=== PATIENT | female | born 1955 | race Caucasian/White ===

== ENCOUNTER 2023-05-03 06:02 | Emergency (ER) | payer MEDICARE, SELFPAY ==
[2023-05-03 06:02] VITALS: BP 135/73; PULSE 100; RESP 18; TEMP 36.6; O2SAT 96; BMI 30.9
--- NOTE | 2023-05-03 06:02 | PC.NURSE ---
in room talking with patient at this time.
--- NOTE | 2023-05-03 06:05 | HMH.EDGENADL ---
Discharge Plan Disposition Patient Disposition: Home, Self-Care Chief Complaint: PAIN Referrals Follow up/Referrals: Provider,Referral, [Primary Care Provider] - See instructions Clinical Impressions Clinical Impression: Chronic pain Qualifiers: Chronic pain type: chronic pain syndrome Qualified Code(s): G89.4 - Chronic pain syndrome Instructions Patient Instructions: DI for Chronic Pain -- Adult Discharge ED Provider: Bethany Hughes Adult HPI General Chief complaint: PAIN Stated complaint: pain Time Seen by Provider: 05/03/23 06:04 Mode of Arrival: EMS Source of Information: Patient History of Present Illness HPI narrative: The patient presents to the emergency department complaining of lower extremity pain. She states that this is chronic pain. She has multiple sclerosis and diabetes. States that usually the pain is not as severe as this time. She takes no pain medications. She is not allergic to any pain medications. She denies any other symptoms. Related Data Allergies Allergy/AdvReac Type Severity Reaction Status Date / Time No Known Allergies Allergy Verified 05/03/23 06:03 [facility] Disclaimer: The information contained in this section may have been updated after the patient was seen, as this information can be updated by other users. Social History Smoking Status: Current every day smoker ROS Obtained: Yes All systems reviewed & no additional complaints except as documented Physical Exam General General appearance: alert Head Head exam: atraumatic Eye Eye exam: Present normal appearance and PERRL ENT ENT exam: Present normal exam and normal oropharynx Neck Neck exam: Present normal inspection and full ROM; Absent tenderness or meningismus Chest Chest inspection: Present normal inspection and symmetric chest wall rise; Absent tenderness Respiratory Respiratory exam: Present normal lung sounds bilaterally; Absent respiratory distress or accessory muscle use Cardiovascular Cardiovascular exam: Present regular rate, normal rhythm and normal heart sounds Abdominal Exam Abdominal exam: Present soft and normal bowel sounds; Absent distention, tenderness, heel tap sign, Latham's sign, Rovsing's sign, tenderness at McBurney's Point or mass Extremities Exam Extremities exam: Present normal inspection, full ROM and other (All 4 extremities are neurovascularly intact.); Absent edema or calf tenderness Back Exam Back exam: Present normal inspection; Absent CVA tenderness (R) or CVA tenderness (L) Neurological Exam Neurological exam: Present alert and oriented X3 Psychiatric Psychiatric exam: Present normal affect and normal mood Skin Skin exam: Present warm, dry, intact and normal color Medical Decision Making Boyd Inquiry Pt receiving controlled substance: No Vital Signs: 05/03/23 06:02 Temperature 97.8 F Temperature Source Oral Pulse Rate [Right Radial] 100 H Respiratory Rate 18 Blood Pressure [Right Arm] 135/73 Blood Pressure Mean [Right Arm] 93 Blood Pressure Source [Right Arm] Automatic Cuff 02 Sat by Pulse Oximetry 96 Oxygen Delivery Method Room Air Orders (Tests/Meds): ED MEDICATIONS Generic Name Dose Route Start Last Admin Trade Name Freq PRN Reason Stop Dose Admin Ondansetron HCl 4 mg 05/03/23 06:42 05/03/23 06:48 Ondansetron 4mg/2ml Vial IV 05/03/23 06:43 4 mg ONCE ONE Administration Discontinued Medications Generic Name Dose Route Start Last Admin Trade Name Freq PRN Reason Stop Dose Admin Acetaminophen 1,000 mg 05/03/23 06:04 05/03/23 06:15 Acetaminophen 1,000mg/100ml Vial IV 05/03/23 06:05 1,000 mg ONCE ONE Administration Ketorolac Tromethamine 30 mg 05/03/23 06:04 05/03/23 06:16 Ketorolac 30mg/Ml Vial IV 05/03/23 06:05 30 mg ONCE ONE Administration Reevaluation(s) Time: 06:54 Reevaluation #1: The patient continues to be in pain after acetaminophen and Toradol. Medical Decision Narrat
[2023-05-03 06:06] VITALS: BMI 30.9
[2023-05-03 07:05] VITALS: BP 120/70; PULSE 94; RESP 18; TEMP 36.8; O2SAT 95
== END 2023-05-03 07:09 | disposition home or self-care (01) ==
PROVIDERS: Emergency Provider Emergency Medicine
DX: G89.4 Chronic pain syndrome (principal); G35 Multiple sclerosis; E11.9 Type 2 diabetes mellitus without complications; F17.200 Nicotine dependence, unspecified, uncomplicated
CPT/HCPCS: 96374; 96375; 99284; J0131; J2405

== ENCOUNTER 2023-06-06 20:34 | Emergency (ER) | payer MEDICARE, SELFPAY ==
[2023-06-06 20:48] VITALS: BP 169/91; PULSE 74; RESP 14; TEMP 36.9; O2SAT 98; BMI 30.9
[2023-06-06 22:19] LABS: Microscopic, Urine URINE MICROSCOPIC (MICROSCOPIC)
[2023-06-06 22:21] LABS: Basophils # 0.1 K/mm3 (0-0.2); Basophils % 0.8 % (0.1-2.0); Eosinophils # 0.2 K/mm3 (0.0-0.4); Eosinophils % 1.9 % (0.1-12.0); Hematocrit 45.2 % (37.0-47.0); Lymphocytes % 34.3 % (10-50); Mean Corpuscular HGB Conc 33.2 g/dL (31.8-35.4); Mean Corpuscular Hemoglobin 29.9 pg (27.0-31.2); Mean Corpuscular Volume 90.1 fl (81-99); Mean Platelet Volume 10.8 fl (7.4-10.4); Monocytes # 0.7 K/mm3 (0.1-1.0); Monocytes % 5.8 % (1.7-9.3); Neutrophils # 6.6 K/mm3 (1.8-7.8); Neutrophils % 57.1 % (37.0-80.0); Platelet Count 211 K/mm3 (142-424); Red Blood Count 5.02 M/mm3 (4.20-5.40); Red Cell Distribution Width 14.8 % (11.5-17.5); White Blood Count 11.6 K/mm3 (4.8-10.8)
--- NOTE | 2023-06-06 22:21 | CT_ITS ---
PROCEDURE INFORMATION: Exam: CT Abdomen And Pelvis With Contrast Exam date and time: 06/06/2023 11:19 PM Age: 68 years old Clinical indication: Abdominal pain; Additional info: Suprapubic and bilateral flank pain TECHNIQUE: Imaging protocol: Computed tomography of the abdomen and pelvis with contrast. Radiation optimization: All CT scans at this facility use at least one of these dose optimization techniques: automated exposure control; mA and/or kV adjustment per patient size (includes targeted exams where dose is matched to clinical indication); or iterative reconstruction. Contrast material: ISOVUE; Contrast volume: 75 ml; Contrast route: IV; REPORTING DATA: Count of CT and Cardiac NM exams in prior 12 months: This patient has received 0 known CTs and 0 known cardiac nuclear medicine studies in the 12 months prior to the current study. COMPARISON: No relevant prior studies available. FINDINGS: Lungs: Lung bases are clear. Pleural spaces: No pleural effusion. Heart: The visualized heart is normal. No pericardial effusion. Liver: The liver has normal size and contour. Gallbladder and bile ducts: The gallbladder is unremarkable. No biliary ductal dilatation. Pancreas: The pancreas is unremarkable. Spleen: 10 mm simple appearing cyst within the spleen. Small splenule. Adrenal glands: The adrenal glands are normal. Kidneys and ureters: The kidneys enhance symmetrically without hydronephrosis. Simple appearing cysts within the inferior pole left kidney. The ureters have normal course and caliber without stone. Stomach and bowel: The small bowel has normal course and caliber. The large bowel has normal course and caliber with scattered colonic diverticula. No significant pericolonic inflammation. Appendix: No evidence of appendicitis. Intraperitoneal space: No significant peritoneal free fluid. No free peritoneal air. Vasculature: The vasculature demonstrates moderate atherosclerotic calcification. No aortic aneurysm. Lymph nodes: No suspicious adenopathy by size criteria. Urinary bladder: The bladder is normal without focal wall thickening. Reproductive: The uterus is absent. No adnexal cysts or masses are identified. Bones/joints: Multilevel degenerative type changes of the spine. No acute osseous abnormality. Soft tissues: Unremarkable. IMPRESSION: 1. No acute intra-abdominal/pelvic abnormality. 2. Other findings as above. COMMENTS: Consistent with the [employer]'s Incidental Findings Committee white paper (J Am Kristen Radiol 2018): Any incidental renal lesion less than 1 cm or classified as too small to characterize, or any incidental cystic renal lesion characterized as simple-appearing, is likely benign. No follow-up imaging is recommended for these lesions per consensus recommendations based on imaging criteria.
[2023-06-06 22:22] LABS: Chloride 103 mmol/L (98-107)
[2023-06-06 22:22] LABS: Appearance,Urine CLOUDY (Clear); Bilirubin,Urine Negative (Negative); Blood, Urine Negative (Negative); Color,Urine YELLOW (Yellow); Glucose,Urine (UA) Negative (Negative); Ketones,Urine Negative (Negative); Leukocyte Esterase,Urine Negative (Negative); Nitrate,Urine POSITIVE (Negative); PH,Urine 6.5 (5.0-8.5); Protein,Urine TRACE (Negative); Specific Gravity, Urine 1.025 (1.005-1.030); Urobilinogen,Urine 0.2 EU/dl (0.2)
[2023-06-06 22:23] LABS: Potassium 4.1 mmoL/L (3.5-5.1); Sodium 140 mmol/L (136-145)
[2023-06-06 22:25] LABS: Blood Urea Nitrogen 20 mg/dl (7-17); Creatinine Clearance Estimated 71 mL/min (50-200); Estimated Glomerular Filt Rate 84 ml/min (>60); GFR (African American) 101 ML/MIN (>60)
[2023-06-06 22:26] LABS: Alanine Aminotransferase 36 U/L (12-78); Albumin Level 4.3 g/dl (3.5-5.0); Albumin/Globulin Ratio 1.2 (1.1-1.8); Alkaline Phosphatase 94 U/L (38-126); Anion Gap 8.1 mEq/L (5-15); Aspartate Amino Transferase 44 U/L (14-36); Bilirubin,Total 0.3 mg/dl (0.2-1.3); Calcium 9.1 mg/dl (8.4-10.2); Carbon Dioxide 33 mmol/L (22.0-30.0); Globulin 3.6 g/dL (1.3-3.2); Glucose 134 mg/dl (74-100); Total Protein,Serum 7.9 g/dl (6.3-8.2)
[2023-06-06 22:34] LABS: Bacteria,Urine 4+ /lpf; WBC,Urine Occasional #/hpf (0-3)
--- NOTE | 2023-06-06 23:55 | HMH.EDGENADL ---
Discharge Plan Disposition Patient Disposition: Home, Self-Care Condition: Good Prescriptions Prescriptions: New cefdinir 300 mg capsule 300 mg PO Q12H 10 Days Qty: 20 0RF No Action ondansetron 8 mg Tablet,Disintegrating 8 mg PO QID PRN (Reason: Nausea And Vomiting) Qty: 16 0RF Referrals Follow up/Referrals: Provider,Referral, MD [Primary Care Provider] - See instructions Activity Restrictions/Add. Instructions Additional Instructions/Restrictions: Please return to the emergency department if you experience any new or worsening symptoms. Clinical Impressions Clinical Impression: Acute pyelonephritis Instructions Patient Instructions: Kidney Infection, DI for Kidney Infection Discharge ED Provider: Jatinder Escobar Adult HPI General Chief complaint: Back Pain/Injury Stated complaint: lower back pain Time Seen by Provider: 06/06/23 20:51 Mode of Arrival: Family Vehicle Source of Information: Patient Limitations: No Limitations Description of Symptoms (Recalled from ER Triage Doc. by RN): 68 yo female presents with cc of 1-2 weeks of sharp pain identified bilateral lumbar area; that radiates into the suprapubic area. afebrile. no obvious trauma however has 'fell a couple of times in the last two weeks due to her MS association' but was able to get up with assistance and continue ADL's as prior to fall without issues. Describes chronic constipation and not feeling like i'm emptying when i go ([facility]). PMH: partial hysterectomy. Not forthcoming with additional issues. gcs 15. nih 0. History of Present Illness HPI narrative: The patient presents with a chief complaint of severe lower back pain and discomfort in the lower abdominal area, which has been ongoing for several days. The pain has worsened today, prompting the patient to seek medical attention. The patient reports that the pain is located in the lower back and extends straight across the area. The patient has a history of kidney infections and kidney stones, some of which have required hospitalization in the past. The patient has also undergone a partial hysterectomy years ago. The patient did not mention any other medical conditions, medications, or allergies to medications during the visit. The patient did not report any fevers, constipation, diarrhea, nausea, or vomiting during the visit. The patient inquired about the possibility of a kidney stone causing a backup of fluid and infection, which could potentially be a surgical emergency. The patient expressed a desire for pain relief and any necessary treatment to address the current symptoms. Related Data Previous Rx's Medication Instructions Recorded ondansetron 8 mg disintegrating 8 mg PO QID PRN Nausea And 05/03/23 tablet Vomiting #16 tabs cefdinir 300 mg capsule 300 mg PO Q12H 10 days #20 caps 06/07/23 Allergies Allergy/AdvReac Type Severity Reaction Status Date / Time No Known Allergies Allergy Verified 05/03/23 06:03 [facility] Disclaimer: The information contained in this section may have been updated after the patient was seen, as this information can be updated by other users. Social History Smoking Status: Unknown if ever smoked alcohol intake: never current occupational status: other Travel in the last 8 weeks: None ROS Obtained: Yes Systems reviewed as appropriate & no additional complaints except as documented As per HPI Physical Exam General General appearance: alert and in no apparent distress Head Head exam: atraumatic and normocephalic Eye Eye exam: Present normal appearance Neck Neck exam: Present normal inspection Chest Chest inspection: Present normal inspection and symmetric chest wall rise Respiratory Respiratory exam: Present normal lung sounds bilaterally; Absent respiratory distress Cardiovascular Cardiovascular exam: Present regular rate and normal rhythm Abdominal Exam Abdominal exam: Present soft Abdominal tenderness: Present s
[2023-06-07 00:52] VITALS: BP 158/88; PULSE 82; RESP 16; TEMP 36.6; O2SAT 97
--- NOTE | 2023-06-11 16:22 | PC.NURSE ---
URINE CULTURE ON WORKLIST. PT D/C ON CEFDINIR, NOTIFIED DR. PERALES OF CULTURE RESULTS WITH ID/SENSITIVITY. STATES NO FURTHER ACTION NEEDED- ON APPROPRIATE ANTIBIOTICS.
== END 2023-06-07 00:54 | disposition home or self-care (01) ==
PROVIDERS: Emergency Provider Emergency Medicine
DX: N10 Acute pyelonephritis (principal); B96.29 Other Escherichia coli [E. coli] as the cause of diseases classified elsewhere; M54.59 Other low back pain
CPT/HCPCS: 74177; 80053; 81001; 85025; 87086; 96374; 96375; 99285; J2405; Q9967

== ENCOUNTER 2023-07-13 16:53 | Emergency (ER) | payer MEDICARE, SELFPAY ==
[2023-07-13 16:53] VITALS: BP 132/88; PULSE 98; RESP 18; TEMP 36.6; O2SAT 97; BMI 29.2
[2023-07-13 17:30] VITALS: BP 152/88; PULSE 113; O2SAT 99
--- NOTE | 2023-07-13 17:32 | PC.NURSE ---
DR SHRESTHA AT BEDSIDE
--- NOTE | 2023-07-13 17:35 | CT_ITS ---
PROCEDURE INFORMATION: Exam: CT Abdomen And Pelvis With Contrast Exam date and time: 07/13/2023 6:39 PM Age: 68 years old Clinical indication: Pain; Other: Left CVA; Additional info: Left CVA pain TECHNIQUE: Imaging protocol: Computed tomography of the abdomen and pelvis with contrast. Radiation optimization: All CT scans at this facility use at least one of these dose optimization techniques: automated exposure control; mA and/or kV adjustment per patient size (includes targeted exams where dose is matched to clinical indication); or iterative reconstruction. Contrast material: ISOVUE; Contrast volume: 75 ml; Contrast route: IV; REPORTING DATA: Count of CT and Cardiac NM exams in prior 12 months: This patient has received [address] and 0 known cardiac nuclear medicine studies in the 12 months prior to the current study. COMPARISON: CT ABDOMEN PELVIS W CON 06/06/2023 11:19 PM FINDINGS: Liver: Normal. No mass. Gallbladder and bile ducts: Normal. No calcified stones. No ductal dilation. Pancreas: Normal. No ductal dilation. Spleen: Stable cyst or hemangioma in the spleen measures 10 mm. Adrenal glands: Normal. No mass. Kidneys and ureters: Stable tiny simple cyst in the inferior pole left kidney. No hydronephrosis. Stomach and bowel: Unremarkable. No obstruction. No mucosal thickening. Appendix: No evidence of appendicitis. Intraperitoneal space: Unremarkable. No free air. No significant fluid collection. Vasculature: Atherosclerotic calcification. No abdominal aortic aneurysm. Lymph nodes: Unremarkable. No enlarged lymph nodes. Urinary bladder: Unremarkable as visualized. Reproductive: Unremarkable as visualized. Bones/joints: Unremarkable. No acute fracture. Soft tissues: Unremarkable. Other findings: Previous granulomatous exposure. IMPRESSION: No acute findings.
--- NOTE | 2023-07-13 17:58 | HMH.EDGENADL ---
Discharge Plan Disposition Patient Disposition: Home, Self-Care Prescriptions Prescriptions: New methocarbamol 500 mg tablet 500 mg PO Q6H PRN (Reason: pain) Qty: 30 0RF lidocaine 5 % adhesive patch,medicated 1 patch topical DAILY PRN (Reason: pain) Qty: 30 0RF Rx Instructions: leave on most painful area for up to 12 hrs No Action ondansetron 8 mg Tablet,Disintegrating 8 mg PO QID PRN (Reason: Nausea And Vomiting) Qty: 16 0RF cefdinir 300 mg capsule 300 mg PO Q12H 10 Days Qty: 20 0RF Referrals Follow up/Referrals: Provider,Referral, MD [Primary Care Provider] - See instructions Activity Restrictions/Add. Instructions Additional Instructions/Restrictions: Please take Robaxin as needed for pain in addition to Tylenol and ibuprofen. Multimodal pain control is more effective. Recommend using lidocaine patches as well, I have sent a prescription. Please follow-up with your primary care provider. Please return to the emergency department if you develop any new or worsening symptoms or become concerned for your health. Clinical Impressions Clinical Impression: Left paraspinal back pain Instructions Patient Instructions: DI for Urinary Tract Infection (UTI), DI for Urinary Tract Infection in Children Discharge ED Provider: Romeo Garcia General Adult HPI General Chief complaint: Urogenital-Female Stated complaint: back pain Time Seen by Provider: 07/13/23 17:32 Mode of Arrival: EMS Source of Information: Patient Limitations: No Limitations Description of Symptoms (Recalled from ER Triage Doc. by RN): PT REPORTS BACK PAIN FOR ABOUT 2-3 DAYS, REPORTS FREQUENT UTI'S History of Present Illness HPI narrative: 68-year-old female, history of previous kidney infections presenting with concern for recurrent kidney infection. She reports that she has been having intermittent left back pain for the last couple of weeks. Worsening today. She denies fever at home. Denies any current urinary symptoms. Pain is worse with movement. Related Data Previous Rx's Medication Instructions Recorded ondansetron 8 mg disintegrating 8 mg PO QID PRN Nausea And 05/03/23 tablet Vomiting #16 tabs cefdinir 300 mg capsule 300 mg PO Q12H 10 days #20 caps 06/07/23 lidocaine 5 % topical patch 1 patch topical DAILY PRN pain #30 07/13/23 ea methocarbamol 500 mg tablet 500 mg PO Q6H PRN pain #30 tabs 12/11/23 Allergies Allergy/AdvReac Type Severity Reaction Status Date / Time No Known Allergies Allergy Verified 05/03/23 06:03 [facility] Disclaimer: The information contained in this section may have been updated after the patient was seen, as this information can be updated by other users. Social History (Updated 06/07/23 @ 15:42 by Jatinder Escobar MD) Smoking Status: Current every day smoker alcohol intake: never current occupational status: other Travel in the last 8 weeks: None ROS Obtained: Yes All systems reviewed & no additional complaints except as documented Physical Exam General General appearance: alert and in no apparent distress Head Head exam: atraumatic and normocephalic Eye Eye exam: Present normal appearance, PERRL and EOMI ENT ENT exam: Present normal oropharynx and normal external ear exam Neck Neck exam: Present normal inspection and full ROM Chest Chest inspection: Present normal inspection and symmetric chest wall rise; Absent tenderness Respiratory Respiratory exam: Present normal lung sounds bilaterally; Absent respiratory distress Cardiovascular Cardiovascular exam: Present regular rate and normal rhythm Abdominal Exam Abdominal exam: Present soft; Absent distention, tenderness or guarding Extremities Exam Extremities exam: Present normal inspection; Absent edema or joint swelling Back Exam Back exam: Present normal inspection and CVA tenderness (L) Neurological Exam Neurological exam: Present alert and oriented X3; Absent motor sensory deficit Psychiatric
[2023-07-13 18:00] VITALS: BP 139/90; PULSE 107; O2SAT 96
[2023-07-13 18:12] LABS: Chloride 106 mmol/L (98-107); Potassium 3.8 mmoL/L (3.5-5.1); Sodium 141 mmol/L (136-145)
[2023-07-13 18:14] LABS: Basophils # 0.1 K/mm3 (0-0.2); Basophils % 0.8 % (0.1-2.0); Eosinophils # 0.2 K/mm3 (0.0-0.4); Eosinophils % 1.9 % (0.1-12.0); Hematocrit 48.2 % (37.0-47.0); Lymphocytes # 3.3 K/mm3 (0.7-4.5); Lymphocytes % 26.5 % (10-50); Mean Corpuscular HGB Conc 33.2 g/dL (31.8-35.4); Mean Corpuscular Hemoglobin 29.7 pg (27.0-31.2); Mean Corpuscular Volume 89.3 fl (81-99); Monocytes # 0.6 K/mm3 (0.1-1.0); Monocytes % 4.4 % (1.7-9.3); Neutrophils # 8.3 K/mm3 (1.8-7.8); Neutrophils % 66.4 % (37.0-80.0); Platelet Count 241 K/mm3 (142-424); Red Cell Distribution Width 14.5 % (11.5-17.5); White Blood Count 12.6 K/mm3 (4.8-10.8)
[2023-07-13 18:15] LABS: Alanine Aminotransferase 71 U/L (12-78); Albumin Level 4.7 g/dl (3.5-5.0); Albumin/Globulin Ratio 1.2 (1.1-1.8); Alkaline Phosphatase 150 U/L (38-126); Anion Gap 10.8 mEq/L (5-15); Aspartate Amino Transferase 49 U/L (14-36); Bilirubin,Total 0.4 mg/dl (0.2-1.3); Blood Urea Nitrogen 14 mg/dl (7-17); Calcium 9.3 mg/dl (8.4-10.2); Carbon Dioxide 28 mmol/L (22.0-30.0); Creatinine Clearance Estimated 67 mL/min (50-200); Estimated Glomerular Filt Rate 84 ml/min (>60); GFR (African American) 101 ML/MIN (>60); Globulin 3.8 g/dL (1.3-3.2); Glucose 136 mg/dl (74-100); Total Protein,Serum 8.5 g/dl (6.3-8.2)
--- NOTE | 2023-07-13 18:33 | PC.NURSE ---
sahara gurrola transported patient to ct scan via wheelchair
--- NOTE | 2023-07-13 18:59 | PC.NURSE ---
Second set of cultures drawn and sent to lab. Pt advised she is still unable to obtain urine at this time
--- NOTE | 2023-07-13 19:13 | PC.NURSE ---
attempted to get urine on pt, she reported that she does not have the need to go at this time. no questions or concerns at this time.
[2023-07-13 19:37] LABS: Microscopic, Urine URINE MICROSCOPIC (MICROSCOPIC)
[2023-07-13 19:38] LABS: Appearance,Urine CLEAR (Clear); Bilirubin,Urine Negative (Negative); Blood, Urine 1+ (Negative); Color,Urine YELLOW (Yellow); Glucose,Urine (UA) Negative (Negative); Ketones,Urine Negative (Negative); Leukocyte Esterase,Urine Negative (Negative); Nitrate,Urine Negative (Negative); PH,Urine 5.5 (5.0-8.5); Protein,Urine 1+ (Negative); Specific Gravity, Urine 1.015 (1.005-1.030); Urobilinogen,Urine 0.2 EU/dl (0.2)
[2023-07-13 20:42] LABS: Bacteria,Urine 1+ /lpf; RBC,Urine Occasional #/hpf (0-3); Yeast,Urine Occasional /lpf
[2023-07-13 20:53] VITALS: BP 147/83; PULSE 90; RESP 20; TEMP 36.7
== END 2023-07-13 21:00 | disposition home or self-care (01) ==
PROVIDERS: Emergency Provider Emergency Medicine
DX: M54.9 Dorsalgia, unspecified (principal); F17.200 Nicotine dependence, unspecified, uncomplicated
CPT/HCPCS: 74177; 80053; 81001; 85025; 87040; 96361; 96374; 99285; Q9967